=== PATIENT | female | born 1980 | race Caucasian/White ===

== ENCOUNTER 2017-09-01 10:28 | Day surgery (SDC) | payer SELFPAY ==
[2017-09-01] MEDS: XYLOCAINE 1 % (PLAIN) ONE ×2 (11:06→11:15)
[2017-09-01 11:31] VITALS: BP 144/76
--- NOTE | 2017-09-01 11:35 | DR.UPDATE ---
H&P Update History and Physical Update: History and Physical reviewed and patient examined. Changes noted: NO Yes with the following:Agree with H&P from Dr Lewis. will perform LP Procedures (ALL) - Lumbar puncture Consent obtained: written consent Time out performed: Yes Patient position: upright Skin prep: povidone-iodine 1% Local anesthetic used: lidocaine 1% (4cc) Interspace used: L4-L5, L3-L4 (L3-4 x1 attempt) Spinal needle gauge: 22G Opening pressure: 51 Fluid initially obtained: clear Complications: none
[2017-09-01 12:00] LABS: TOTAL PROTEIN,CSF 23.6 mg/dL (15-45)
[2017-09-01 12:02] LABS: GLUCOSE,CSF 62 mg/dl (40-75)
[2017-09-01 12:09] LABS: TOT VOL 7 mL
[2017-09-01 12:10] LABS: APPEARANCE,CSF CLEAR; COLOR,CSF COLORLESS
[2017-09-01 12:24] LABS: WHITE BLOOD CELL,CSF 8 Cubic mm
== END 2017-09-01 11:32 | disposition home or self-care (01) | DRG 103 ==
LOC: SURG1 10:28
PROVIDERS: ATTEND Psychiatry & Neurology Neurology
PROC: 009U3ZX Drainage of Spinal Canal, Percutaneous Approach, Diagnostic (ICD-10-PCS; principal; 2017-09-01 10:45)
DX: G93.2 Benign intracranial hypertension (principal)
CPT/HCPCS: 62270; 82945; 84157; 87070; 87205; 89050; J2001